=== PATIENT | female | born 1970 | race Caucasian/White ===

== ENCOUNTER → 2016-04-15 | Outpatient (CLI) | payer OTHER ==
[~2016-04-15] MED LIST: ASPIR-LOW81 MG PO; BUSPIRONE HCL5 GM PO; CLARITIN 10MG T10 MG PO; FUROSEMIDE20 MG PO; IMODIUM CAP 2 MG2 MG PO; KENALOG CREAM 015 GM EXT; KLOR-CON M2020 MEQ PO; NEURONTIN 100100 MG PO; PROTONIX40 MG PO; PROVENTIL HFA 61 INH INH; ROBAXIN 750 MG750 MG PO; SOTALOL80 MG PO; TYLENOL 325MG325 MG PO; VENTOLIN/PROVE0.5 ML INH
== END ==
LOC: HEART 5 08:52
DX: R06.02 Shortness of breath (principal)
CPT/HCPCS: 94060; 94729

== ENCOUNTER → 2020-05-22 | Outpatient (CLI) | payer OTHER | LOC: HEART CORB 13:07 | DX: R42 Dizziness and giddiness (principal); R00.2 Palpitations ==